=== PATIENT | male | born 1965 | race African-American/Black ===

== ENCOUNTER 2023-08-30 01:06 | Day surgery (SDC) | payer OTHER, SELFPAY ==
[2023-08-11 11:47] VITALS: BMI 25.7
--- NOTE | 2023-08-26 13:57 | SUR.PREOP ---
Patient called regarding upcoming procedure. Voicemail left regarding appointment times.
--- NOTE | 2023-08-29 14:32 | PM.HPGS ---
History of Present Illness History of Present Illness Consent: Risks, benefits, and alternatives have been discussed and questions answered. Patient agrees to proceed with procedure. Chief complaint: History colon polyps Narrative: Michele Jin is a 57 year old male Who was referred for colon cancer screening. Eight years ago he had a colonoscopy with removal of 3 polyps, at least 1 of which was an adenoma. Review of Systems Review of Systems: All systems reviewed & are unremarkable except as noted in HPI and below PMFSH Social History Social History Smoking status: Never smoker Substance use type: does not use Living arrangements: alone Spiritual care concerns: No Meds Home Medications and Allergies Home Medications Medication Instructions Recorded Confirmed Type No Home Medications 08/11/23 08/11/23 History Allergies Allergy/AdvReac Type Severity Reaction Status Date / Time No Known Allergies Allergy Verified 08/11/23 11:46 Exam Resp: Auscultation: clear to auscultation bilaterally Cardio: Rate: regular rate Rhythm: regular rhythm GI: GI Palp: Yes Soft to palpation and No Tenderness to palpation present (GI) Assessment and Plan Assessment and plan (1) Colon cancer screening: Code(s): Z12.11 - Encounter for screening for malignant neoplasm of colon Status: Acute Assessment and Plan: Colonoscopy with possible biopsy or polypectomy or cautery or injection of substances.
[2023-08-30 07:18] VITALS: BP 150/91; PULSE 73; RESP 18; TEMP 36.3; O2SAT 100; BMI 24.2
[2023-08-30] MEDS: LACTATED RINGERS 1,000 ML 150 ML IV CONT (07:41)
--- NOTE | 2023-08-30 07:54 | P.PNAN_ITS ---
Anes - Initial Pre Proc Eval Procedure: Operation Date: 08/30/23 08:30 Proposed Procedures p Colonoscopy - Rah Polanco MD Date/Time: 08/30/23 07:54 Surgeon: Rah Polanco MD Pre Op Diagnosis: History colon polyps Patient Data Age: 57 Gender: M Height: 1.91 m Weight: 87.9 kg Last Vital Signs Temp 97.4 F L 08/30/23 07:18 Pulse 73 08/30/23 07:18 Resp 18 08/30/23 07:18 BP 150/91 H 08/30/23 07:18 Pulse Ox 100 08/30/23 07:18 O2 Del Method Room Air 08/30/23 07:18 Allergies Allergy/AdvReac Type Severity Reaction Status Date / Time No Known Allergies Allergy Verified 08/11/23 11:46 Home Medications Medication Instructions Recorded Confirmed Type No Home Medications 08/11/23 08/11/23 History Patient hx anesthesia problems: none Family hx anesthesia problems: none Results Review: All pre-operative results and documents have been reviewed as part of the pre- operative evaluation. [facility] Social History Social History Smoking status: Never smoker Substance use type: does not use Living arrangements: alone Spiritual care concerns: No Anes - Eval Final PreProcedure Day of Procedure 08/30/23 07:54 Patient weight: normal Heart: regular rate and rhythm Lungs: clear to auscultation Airway: Mallampati scale class II Neurological: alert and oriented Last oral intake: >/= 8 hours ASA classification: I Emergent: no Anesthetic plan: proceed Anesthesia type and monitoring: general GIVS and standard monitoring Results Review: All pre-operative results and documents have been reviewed as part of the pre-operative evaluation. Informed Consent: The patient's anesthetic plan and its attendant risks and benefits were discussed with the patient/family/POA. Questions were solicited and answers provided to the satisfaction of the patient/family/POA.
[2023-08-30 08:40] VITALS: BP 101/70; PULSE 87; RESP 19; O2SAT 100
[2023-08-30 08:50] VITALS: BP 105/71; PULSE 85; RESP 15; O2SAT 100
[2023-08-30 09:00] VITALS: BP 119/87; PULSE 76; RESP 20; O2SAT 100
== END 2023-08-30 09:03 | disposition home or self-care (01) ==
PROVIDERS: PCP Family Medicine; Visit Provider Internal Medicine Gastroenterology
PROC: 0DJD8ZZ Inspection of Lower Intestinal Tract, Via Natural or Artificial Opening Endoscopic (ICD-10-PCS; CPT 45378; principal; 2023-08-30 08:30)
DX: Z12.11 Encounter for screening for malignant neoplasm of colon (principal); K63.5 Polyp of colon
CPT/HCPCS: 45380; 88305; J2704; J7120

== ENCOUNTER 2025-01-15 07:02 | Outpatient (CLI) | payer OTHER, SELFPAY ==
--- NOTE | ~2025-01-15 | MR_ITS ---
EXAMINATION: MR shoulder LT wo con DATE: 01/15/2025 07:34 INDICATION: Left shoulder pain TECHNIQUE: Magnetic resonance imaging (MRI) of the left shoulder was performed without intravenous co ntrast. Sequences included axial PD-weighted FS FSE, coronal oblique PD-weighted FS FSE, coronal obli que T2-weighted FS FSE, sagittal PD-weighted FS FSE, and sagittal T1-weighted SE. COMPARISON: None. FINDINGS: Coracoacromial arch: The acromion undersurface is curved in morphology (type II) with small anterior subacromial spur. The coracoacromial ligament is normal. Moderate acromioclavicular osteoarthritis with small inferiorly d irected osteophytes at the lateral head of the clavicle. Rotator cuff: Moderate supraspinatus tendinopathy severe partial thickness intrasubstance tear along the superior f acet footplate of the supraspinatus tendon. The tear extends 12 mm AP and involves up to two thirds o f the tendon thickness. There appears to be some mild fraying of the articular side of the distal ten don but without a clear clinical history fluid-filled intrasubstance tear defect which measures up to 8mm in maximal medial to lateral width. Mild tendinopathy without tear of the anterior infraspinatus tendon and the cephalad subscapularis tendon. The teres minor tendon is normal. Normal rotator cuff muscle bulk and signal. Biceps tendon, glenoid labrum and glenohumeral cartilage: Long head of the biceps tendon is normal. Likely normal medial directed cleft with smooth margins sit uated between the rim of the glenoid and the 1:00-12:00 position of the superior glenoid labrum. Norm al small anterosuperior sublabral foramen. No definitive labral tear. There is mild partial-thickness cartilage loss with mild chondral surface irregularity and minimal underlying subarticular edema-lik e signal change extending anterior to posterior across the apex of the humeral head. Glenoid cartilag e is normal. Fluid: Physiologic amount of fluid in the glenohumeral joint and biceps tendon sheath. No loose osteochondr al bodies. Small amount of fluid in the subacromial/subdeltoid bursa consistent with mild bursitis. Bones: Normal marrow signal with no edema, fracture or abnormal marrow replacing process. IMPRESSION: 1. Moderate supraspinatus tendinopathy with some distal bursal sided fraying and underlying small sev ere partial thickness intrasubstance tear along the superior facet footplate of the tendon. 2. Mild glenohumeral osteoarthritis with moderate to high-grade chondromalacia along the apex of the humeral head. 3. Moderate acromioclavicular osteoarthritis with small inferiorly directed osteophytes, small subacr omial spur and underlying mild subacromial/subdeltoid bursitis. Reviewed, dictated and finalized at location A. IMPRESSION: 1. Moderate supraspinatus tendinopathy with some distal bursal sided fraying an d underlying small severe partial thickness intrasubstance tear along the super ior facet footplate of the tendon. 2. Mild glenohumeral osteoarthritis with moderate to high-grade chondromalacia along the apex of the humeral head. 3. Moderate acromioclavicular osteoarthritis with small inferiorly directed ost eophytes, small subacromial spur and underlying mild subacromial/subdeltoid bur sitis.
== END 2025-01-15 07:03 | disposition home or self-care (01) ==
LOC: MICIMG 07:03
PROVIDERS: PCP Family Medicine; Visit Provider Orthopaedic Surgery
DX: M75.82 Other shoulder lesions, left shoulder (principal); S46.912A Strain of unspecified muscle, fascia and tendon at shoulder and upper arm level, left arm, initial encounter; X58.XXXA Exposure to other specified factors, initial encounter; M75.112 Incomplete rotator cuff tear or rupture of left shoulder, not specified as traumatic; M19.012 Primary osteoarthritis, left shoulder; M94.212 Chondromalacia, left shoulder; M25.712 Osteophyte, left shoulder; M77.8 Other enthesopathies, not elsewhere classified; M75.52 Bursitis of left shoulder
CPT/HCPCS: 73221